=== PATIENT | female | born 1985 | race Caucasian/White ===

== ENCOUNTER → 2017-01-22 | Outpatient (CLI) | payer BC ==
--- NOTE | 2017-01-22 15:21 | DIAGNOSTIC IMAGING REPORT ---
LEFT ANKLE MRI HISTORY: LEFT ANKLE PAIN TECHNIQUE: Multiplanar multisequence MRI of the left ankle was performed without contrast. COMPARISON STUDY: Left ankle 10/03/2016. FINDINGS: There is normal marrow signal intensity seen throughout the visualized osseous structures. No acute fracture dislocation within the left ankle. Small well-corticated ossific densities adjacent to the tip of the distal fibula consistent with old avulsion injuries. 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 The posterior talofibular and medial stabilizing ligaments are intact. Cartilage spaces are maintained. Mild subcutaneous edema within the medial and lateral malleolus. Small linear focus of increased signal within the distal Achilles consistent with a mild chronic tendinosis. The sinus tarsi appears intact. The flexor and extensor tendons are intact. There is a split tear of the peroneus brevis tendon as it crosses the lateral malleolus. This is also likely old. The plantar fascia is intact. IMPRESSION: 1. 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 There are few small ossific densities adjacent to the lateral malleolus consistent with old avulsion injuries. 2. No acute fracture or dislocation within the left ankle. 3. Split tear of the peroneus brevis tendon which is also likely old. 4. Small focus of increased T2 signal within the distal Achilles tendon consistent with a mild chronic tendinosis. Electronically signed by: Austin Rivers M.D. 01/22/2017 3:19 PM Dictated Date/Time: 01/22/2017 3:12 PM
== END | disposition home or self-care (01) ==
LOC: C.MRI 13:51
PROVIDERS: ATTEND Family Medicine
DX: M25.572 Pain in left ankle and joints of left foot (principal); R93.7 Abnormal findings on diagnostic imaging of other parts of musculoskeletal system; M66.88 Spontaneous rupture of other tendons, other sites

== ENCOUNTER → 2017-02-19 | Outpatient (CLI) | payer BC | END | disposition home or self-care (01) | LOC: C.PAPS 16:44 | PROVIDERS: ATTEND Physician Assistant | DX: Z01.419 Encounter for gynecological examination (general) (routine) without abnormal findings (principal) ==